=== PATIENT | male | born 1965 | race Caucasian/White ===

== ENCOUNTER 2018-12-23 14:18 | Emergency (ER) | payer OTHER ==
--- OUTSIDE RECORDS SUMMARY | 2018-12-23 14:25 | XMS REPORT | Continuity of Care Document ---
:1965 External Reference #:[id number] Author Name Georgie Greenwood N.Emily (transmitted by agent of provider Nicki Ragsdale) Address [address], [place] [address] Care Team Providers Name Role Phone Noemi Grace MD - Internal Care Team Information Sales Professional [phone] Medicine Problems Active Problems Provider Date Asthma without status asthmaticus Cassidy Abarca M.D., FACP Onset: 05/17/2010 Iron deficiency Georgie Greenwood N.PHi Onset: 09/07/2015 Social History Type Date Description Comments Sex Unknown ETOH Use Denies alcohol use Tobacco Use Start: Unknown Patient has never smoked Smoking Status Reviewed: 11/04/18 Patient has never smoked Exercise Type/Frequency Exercises regularly Allergies, Adverse Reactions, Alerts Active Allergies Reaction Severity Comments Date No Known Drug Allergy 05/15/2010 Medications Active Medications SIG Qnty Indications Ordering Date Provider Flovent HFA Inhale 1 puff By 12units Georgie Greenwood, 04/06/2018 Mouth Two Times N.P. 110mcg/Act Aerosol Daily Nott currently using Benadryl Allergy take 1-2 tablets 14caps Georgie Greenwood, 12/22/2017 25mg four times a day N.P. Capsules as needed Multiple Vitamin 1 po qd 100tabs Unknown Tablets Vitamin B Complex 1 po qd Unknown Tablets Epipen 2-Madan use as directed Unknown 0.3mg/0.3ML Solution Auto-Inject Montelukast Sodium Take 1 Tablet By 30tabs Georgie Greenwood, Mouth Every Day N.P. 10mg Tablets Ventolin HFA 2 puffs by mouth 8gm Georgie Greenwood, four times a day N.P. 108(90Base) mcg/Act as needed Aerosol Vitamin D3 Super 1 by mouth every Unknown Strength day 1000U Tablets Tums as needed Unknown 500mg Chewtabs Iron Unknown 90(18Fe) mg Tablets Magnesium take one Unknown 300mg capsule/tablet Capsules daily by mouth Vitamin B12 1 by mouth every Unknown 1000mcg day Tablets ER Immunizations CPT Code Status Date Vaccine Reaction Lot # [id number] Given 12/22/2017 Influenza Virus Vaccine, No immediate [id number] Quadrivalent, Split, reaction...jh Preservative Free [id number] Given 10/03/2016 Tetanus And Diptheria (Td) [id number] For Adult Use Preservative Free [id number] Given 12/15/2014 Influenza Virus Vaccine, [id number] Quadrivalent, Split, Preservative Free [id number] Given 10/05/2006 Tdap - Tetanus/Diptheria/Acellular Pertussis [id number] Given 10/05/2006 Tdap - Tetanus/Diptheria/Acellular Pertussis Vital Signs Date Vital Result Comment 11/04/2018 8:58am Height 68 inches 5'8" Weight 127.00 lb Heart Rate 56 /min BP Systolic Sitting 98 mmHg BP Diastolic Sitting 67 mmHg Body Temperature 97.0 F O2 % BldC Oximetry 98 % BMI (Body Mass Index) 19.3 kg/m2 02/16/2018 10:22am Height 68 inches 5'8" Weight 126.00 lb Heart Rate 57 /min BP Systolic 100 mmHg BP Diastolic 56 mmHg Body Temperature 96.5 F O2 % BldC Oximetry 98 % BMI (Body Mass Index) 19.2 kg/m2 Results Test Date Facility Test Result H/L Range Note Lipid Profile 11/02/[address] [facility] Triglycerides 68 mg/dL 1 (Trig/Chol/HDL) [address] [place] [address] [phone] Cholesterol 196 mg/dL 2 HDL Cholesterol 77.3 mg/dL 3 LDL Cholesterol 105 mg/dL 4 Comp Metabolic 11/02/[address] [facility] Sodium 135 mmol/L Normal 135-[address] [place] [address] [phone] Potassium 4.0 mmol/L Normal 3.5-5.0 Chloride 104 mmol/L Normal 101-111 Co2 Carbon Dioxide 31 mmol/L Normal 22-32 Glucose 98 mg/dL Normal 70-100 Blood Urea Nitrogen 15 mg/dL Normal 6-24 Creatinine 0.91 mg/dL Normal 0.67-1.17 BUN/Creatinine Ratio 16.5 Normal 8-20 Calcium 9.1 mg/dL Normal 8.6-10.3 Total Protein 6.5 g/dL Normal 6.4-8.9 Albumin 4.4 g/dL Normal 3.2-5.2 Globulin 2.1 g/dL Normal 2-4 Albumin/Globulin Ratio 2.1 Normal 1-3 Total Bilirubin 0.70 mg/dL Normal 0.2-1.0 Alkaline Phosphatase 62 U/L Normal 34-104 Alt 15 U/L Normal 7-52 Ast 19 U/L Normal 13-39 Egfr Non- 87.2 >60 Egfr 105.5 >60 5 1 Desirable: <150 Borderline High: 150-199 High: 200-499 Very High: >500 2 Desirable: <200 Borderline High: 200-239 High: >239 3 Low: <40 Desirable: 40-60 High: >60 4 Desirable: <100 Near Optimal: 100-129 Borderline High: 130-159 High: 160-189 Very High: >189 5 Because ethnic data is not always readily available, this report includes an eGFR for both -Americans and non- Americans. The National Kidney Disease Education Program (NKDEP) does not endorse the use of the MDRD equation for patients that are not between the ages of 18 and 70, are , have extremes of body size, muscle mass, or nutritional status, or are non- or non-. According to the National Kidney Foundation, irrespective of diagnosis, the stage of the disease is based on the level of kidney function: Stage Description GFR(mL/min/1.73 m(2)) 1 Kidney damage with normal or decreased GFR 90 2 Kidney damage with mild decrease in GFR 60-89 3 Moderate decrease in GFR 30-59 4 Severe decrease in GFR 15-29 5 Kidney failure <15 (or dialysis) Procedures Date Code Description Status 03/15/2018 518858790 Diabetic Retinal Eye Exam Completed 03/20/2015 940621248 Diabetic Retinal Eye Exam Completed 11/21/2014 49624479 Colonoscopy Completed Medical Devices Description No Information Available Encounters Description No Information Available Assessments Date Code Description Provider 11/04/2018 Z00.00 Encounter for general adult medical examination Georgie Greenwood NJohana without abnormal findings 11/04/2018 E78.00 Pure hypercholesterolemia, unspecified Georgie Greenwood N.P. 11/04/2018 E61.1 Iron deficiency Georgie Greenwood N.P. 11/04/2018 K63.9 Disease of intestine, unspecified Georgie Greenwood N.PHi 11/04/2018 J45.20 Mild intermittent asthma, uncomplicated Georgie Greenwood N.Emily Plan of Treatment Future Appointment(s):11/22/2019 8:40 am - Georgie Greenwood N.P. at [facility] - [facility]11/04/2018 - Georgie Greenwood N.P.Z00.00 Encounter for general adult medical examination without abnormal findingsComments:For your routine health maintenance: I encourage you to continue with regular exercise and healthy nutrition. Your colonoscopy is up to date. You had this in 2014. You will need this repeated in 2024. Your Tetanus immunization is up to date. You received this in 2017. It is good for 10 years unless you have a major injury, then it is good for 5 years.E78.00 Pure hypercholesterolemia, unspecifiedComments:For your high cholesterol: Your recent labs to check your cholesterol looked good.E61.1 Iron deficiencyComments:I urge you to continue with your iron supplement.K63.9 Disease of intestine, unspecifiedComments:For your intestinal issues continue your current management.J45.20 Mild intermittent asthma, uncomplicatedComments:For your asthma:Continue your current management. If at any point you find you need to use your rescue inhaler more than twice weekly on a regular basis, please call the office. This indicates your asthma is not adequately controlled. Functional Status Description No Information Available Mental Status Description No Information Available Referrals Description No Information Available
[2018-12-23 14:39] VITALS: BP 119/62
[2018-12-23] MEDS ORDERED: Tetan/Diph/Pertus SYR(Tdap)* 0.5 ML SYR(BOOSTRIX) use SYR contains LATEX IM ONE (14:43)
--- NOTE | 2018-12-23 15:33 | UC ---
Laceration HPI - HPI Summary HPI Summary: Pt presents with c/o laceration to right 4th finger. Pt states he was cleaning a dish and it broke. Pt has laceration to right 4th finger. Pt states he is not UTD with tetanus. - History Of Current Complaint Chief Complaint: UCLaceration Stated Complaint: FINGER LAC Time Seen by Provider: 12/23/18 14:42 Hx Obtained From: Patient Laceration Location: Finger - right 4th Mechanism Of Injury: Sharp Trauma Onset/Duration: Sudden Onset Severity: Mild Pain Intensity: 0 Pain Scale Used: 0-10 Numeric Aggravating Factors: Position - Allergies/Home Medications Allergies/Adverse Reactions: Allergies Allergy/AdvReac Type Severity Reaction Status Date / Time No Known Allergies Allergy Verified 12/23/18 14:36 Home Medications: Home Medications Montelukast Sodium TAB* [Singulair TAB*] 5 mg PO DAILY 12/23/18 [History Confirmed 12/23/18] Multivitamin [Multivitamins] 1 cap PO DAILY 12/23/18 [History Confirmed 12/23/18 ] PMH/Surg Hx/FS Hx/Imm Hx Previously Healthy: Yes - Surgical History Surgical History: Yes Surgery Procedure, Year, and Place: eye surgery - Social History Occupation: Employed Full-time Lives: With Family Alcohol Use: None Substance Use Type: None Smoking Status (MU): Never Smoked Tobacco Have You Smoked in the Last Year: No - Immunization History Most Recent Tetanus Shot: unknown Vaccination Up to Date: No Review of Systems All Other Systems Reviewed And Are Negative: Yes Constitutional: Positive: Negative Skin: Positive: Other Eyes: Positive: Negative ENT: Positive: Negative Respiratory: Positive: Negative Cardiovascular: Positive: Negative Gastrointestinal: Positive: Negative Genitourinary: Positive: Negative Motor: Positive: Negative Neurovascular: Positive: Negative Musculoskeletal: Positive: Negative Neurological: Positive: Negative Psychological: Positive: Negative Is Patient Immunocompromised?: No Physical Exam Triage Information Reviewed: Yes Appearance: Well-Appearing, Thin Vital Signs: Initial Vital Signs Temp 99.2 F 12/23/18 14:37 Pulse 68 12/23/18 14:37 Resp 18 12/23/18 14:37 BP 119/62 12/23/18 14:37 Pulse Ox 100 12/23/18 14:37 Vital Signs Reviewed: Yes Eye Exam: Normal ENT Exam: Normal Dental Exam: Normal Neck exam: Normal Respiratory Exam: Normal Respiratory: Positive: No respiratory distress Musculoskeletal Exam: Normal Musculoskeletal: Positive: Strength Intact, ROM Intact Neurological Exam: Normal Psychological Exam: Normal Skin Exam: Other - laceration to right finger, bleeding controlled Laceration Repair - Laceration Repair 1 Description: Linear Laceration Size After Repair: Length (cm) - 0.5, Width (mm) - 2, Depth (mm) - 2 Modified For Repair: No Cleansing Completed Via Routine Prep: Yes Irrigation With Pressure Irrigation Device: No Closure Material: Skin Adhesive Closure Method: Single Layer Laceration Course/Dx - Differential Dx - Laceration/Wound Differental Diagnoses: Foreign Body, Laceration - Diagnosis Provider Diagnosis: Laceration of right ring finger Discharge ED - Sign-Out/Discharge Documenting (check all that apply): Patient Departure All imaging exams completed and their final reports reviewed: No Studies - Discharge Plan Condition: Stable Disposition: HOME Patient Education Materials: Laceration (DC), Skin Adhesive Care (ED) Referrals: Georgie Greenwood NP [Primary Care Provider] - If Needed - Billing Disposition and Condition Condition: STABLE Disposition: Home
== END 2018-12-23 15:05 | disposition home or self-care (01) ==
LOC: UCEAST 14:18
DX: S61.214A Laceration without foreign body of right ring finger without damage to nail, initial encounter (principal); W45.8XXA Other foreign body or object entering through skin, initial encounter; Y93.G1 Activity, food preparation and clean up; Y92.9 Unspecified place or not applicable
CPT/HCPCS: 12001; 12011; 90715; 99211; G0463